=== PATIENT | male | born 1930 | race Caucasian/White ===

== ENCOUNTER 2018-07-29 05:10 | Emergency (ER) | payer MEDICARE ==
[~2018-07-29] VITALS: Ht 172.7 cm; Wt 98.4 kg
--- NOTE | 2018-07-29 05:15 | NUR ---
Dr. Lyons at bedside for MSE.
--- NOTE | 2018-07-29 05:20 | NUR ---
UNABLE TO OBTAIN MEDICAL HX OF PATIENT AND MEDICATIONS NAME/DOSAGE AT THIS TIME. PATIENT AND CAREGIVER UNABLE TO RECALL MEDICATION TAKING AT HOME.
[2018-07-29] MEDS ORDERED: AMIODARONE HCL IV 150 MG in IV DEXTROSE 5% 100 ML IV ONE (05:30)
[2018-07-29] MEDS ORDERED: IV NORMAL SALINE 500 ML BAG IV ONE (05:30)
[2018-07-29] MEDS ORDERED: AMIODARONE HCL 150 MG/3 ML VIAL IV ONE ×3 (05:39→05:54)
--- NOTE | 2018-07-29 05:46 | NUR ---
Xray at bedside.
[2018-07-29 05:47] LABS: BASOPHILS # (AUTO) 0.1 K/uL (0.0-8.0); BASOPHILS % (AUTO) 0.8 % (0.0-2.0); EOSINOPHILS % (AUTO) 0.5 % (0.0-7.0); HEMATOCRIT 40.8 % (36.7-47.1); HEMOGLOBIN 14.2 g/dL (12.5-16.3); LYMPHOCYTES # (AUTO) 0.5 K/uL (20.0-40.0); LYMPHOCYTES % (AUTO) 6.6 % (20.5-51.5); MEAN CORPUSCULAR HEMOGLOBIN 31.2 uug (23.8-33.4); MEAN CORPUSCULAR HGB CONC 35 g/dL (32.5-36.3); MEAN CORPUSCULAR VOLUME 89.8 fL (73.0-96.2); MONOCYTES # (AUTO) 0.5 K/uL (2.0-10.0); MONOCYTES % (AUTO) 6.4 % (0.0-11.0); NEUTROPHILS # (AUTO) 6.8 K/uL (1.8-8.9); NEUTROPHILS % (AUTO) 85.7 % (38.5-71.5); PLATELET COUNT (AUTO) 187 K/uL (152-348); RED BLOOD CELL COUNT(AUTO) 4.54 MIL/uL (4.06-5.63); WHITE BLOOD COUNT (AUTO) 7.9 K/uL (3.6-10.2)
[2018-07-29 06:04] LABS: ETHANOL < 3 MG/DL (0-0)
[2018-07-29 06:06] LABS: CARBON DIOXIDE 25 mmol/L (21-32); CHLORIDE 88 mmol/L (98-107); GLUCOSE 251 mg/dL (74-106)
[2018-07-29 06:08] LABS: UREA NITROGEN, BLOOD 102 mg/dL (7-18)
[2018-07-29] MEDS: AMIODARONE HCL IV 900 MG in IV DEXTROSE 5% 482 ML IV PRN ×2 (06:09→07:41)
[2018-07-29 06:10] LABS: ALANINE AMINOTRANSFERASE 30 U/L (16-63); ALKALINE PHOSPHATASE 87 U/L (50-136); ASPARTATE AMINOTRANSFERASE 27 U/L (15-37); BILIRUBIN,DIRECT 0.4 mg/dL (0.0-0.2); BILIRUBIN,TOTAL 0.9 mg/dL (0.2-1.0); TOTAL PROTEIN, SERUM 8.9 g/dL (6.4-8.2)
[2018-07-29] MEDS ORDERED: CEFTRIAXONE 1 G in IV DEXTROSE 5% 50 ML IV ONE (06:15)
[2018-07-29 06:38] LABS: THYROID STIMULATING HORMONE 2.232 mIU/mL (0.358-3.740)
[2018-07-29 06:40] LABS: CARBON DIOXIDE 24 mmol/L (21-32); CHLORIDE 88 mmol/L (98-107); GLUCOSE 250 mg/dL (74-106); POTASSIUM 4.1 mmol/L (3.5-5.1)
[2018-07-29 06:41] LABS: UREA NITROGEN, BLOOD 101 mg/dL (7-18)
[2018-07-29 06:46] LABS: ALANINE AMINOTRANSFERASE 30 U/L (16-63); ALKALINE PHOSPHATASE 86 U/L (50-136); ASPARTATE AMINOTRANSFERASE 28 U/L (15-37); BILIRUBIN,TOTAL 0.8 mg/dL (0.2-1.0)
--- NOTE | 2018-07-29 07:04 | NUR ---
Report given to Torres CHASE.
--- NOTE | 2018-07-29 07:07 | NUR ---
Pt out of ER for CT.
--- NOTE | 2018-07-29 08:08 | NUR ---
pt 's daughter arrived, decided to take pt ama. iv x 2 d/c'd meds d/c'd, pt's daughter was given copies of all tests including ekg's and radiology results. dr jimenez spoke to pt's daughter, daughter signed ama form. pt was then placed on wheelchair and escorted to [employer]. pt took all belongings.
[2018-07-29 08:35] VITALS: BP 112/88
== END 2018-07-29 08:08 | disposition left against medical advice (07) ==
LOC: ER 05:11
DX: I48.0 Paroxysmal atrial fibrillation (principal); N17.9 Acute kidney failure, unspecified; R55 Syncope and collapse; R79.89 Other specified abnormal findings of blood chemistry; R74.0 Nonspecific elevation of levels of transaminase and lactic acid dehydrogenase [LDH]; J45.909 Unspecified asthma, uncomplicated
CPT/HCPCS: 36415; 70450; 71045; 80048; 80053; 80076; 83605; 84443; 84484; 85025; 85730; 87040 ×2; 93005 ×2; 96365; 96375; 99291; G0480; J0282 ×2; J0696; J7060 ×2; 70030-TC; A4663